=== PATIENT | male | born 1965 | race Caucasian/White ===

== ENCOUNTER 2021-03-13 15:41 | Emergency (ER) | payer SELFPAY ==
[2021-03-13 16:29] LABS: #Eosinphils 0.1 thou/uL (0.0-0.7); #Lymphocytes 0.9 thou/uL (1.20-3.40); #Monocytes 0.5 thou/uL (0.11-0.59); #Neutrophils 4.2 thou/uL (1.40-6.50); %Basophils 0.2 % (0.0-1.0); %Eosinophils 1.1 % (0.0-10.0); %Lymphocytes 16.3 % (21.0-51.0); %Monocytes 9.2 % (0.0-10.0); %Neutrophils 73.3 % (42.0-75.0); Hemoglobin 13.6 g/dL (14.0-18.0); Mean Corpuscular HGB CONC 32.5 g/dL (32.0-36.0); Mean Corpuscular Hemoglobin 31.4 pg (27.0-31.0); Mean Corpuscular Volume 96.7 fL (78.0-98.0); Mean Platelet Volume 6.5 fL (7.4-10.4); Platelet Count 200 thou/uL (130-400); RBC Distribution Width 11.9 % (11.5-14.5); Red Blood Cell (RBC) Count 4.33 mill/uL (4.70-6.10); White Blood Cell (WBC) Count 5.8 thou/uL (4.8-10.8)
[2021-03-13] MEDS ORDERED: Sodium Chloride 0.9% 100 ML ONE (16:45)
[2021-03-13] MEDS ORDERED: Sodium Chloride 0.9% 250 ML 250 ML ONE (16:45)
[2021-03-13] MEDS ORDERED: Piperacillin/Tazobactam 4.5 GM VIAL ONE (16:45)
[2021-03-13 16:46] LABS: ALT (SGPT) 19 U/L (8-55); AST (SGOT) 16 U/L (5-34); Albumin 3.6 g/dL (3.5-5.0); Alkaline Phosphatase 52 U/L (40-110); Anion Gap 12 mmol/L (10-20); BUN (Urea Nitrogen) 14 mg/dL (8.4-25.7); Bilirubin, Total 0.3 mg/dL (0.2-1.2); Calc. Creatinine Clearance 0 mL/min (70-130); Carbon Dioxide 24 mmol/L (22-29); Chloride 106 mmol/L (98-107); Globulin 3.2 g/dL (2.4-3.5); Glucose 116 mg/dL (70-105); Potassium 4.1 mmol/L (3.5-5.1); Protein, Total 6.8 g/dL (6.0-8.3); Sodium 138 mmol/L (136-145)
[2021-03-13] MEDS ORDERED: Lidocaine 1% (PF) 30 ML VIAL ONE (17:02)
== END 2021-03-13 18:50 | disposition home or self-care (01) ==
LOC: NAV ERS 15:41
DX: L02.415 Cutaneous abscess of right lower limb (principal)
CPT/HCPCS: 10060; 80053; 85025; 96365; 96367; J2001; J2543; J3370; J3490; J7050

== ENCOUNTER 2022-02-18 07:19 | Emergency (ER) | payer SELFPAY | END 2022-02-18 08:10 | disposition home or self-care (01) | LOC: NAV ERS 07:19 | DX: B02.9 Zoster without complications (principal); F17.210 Nicotine dependence, cigarettes, uncomplicated | CPT/HCPCS: 99283 ==